=== PATIENT | male | born 1935 | race African-American/Black ===

== ENCOUNTER 2017-01-17 09:41 | Emergency (ER) | payer BC, MEDICARE ==
[~2017-01-17] VITALS: Ht 180.3 cm; Wt 73.0 kg
[2017-01-17] MEDS ORDERED: LIDOCAINE HCL 1% 20ML VIAL (Pyxis) INJ MC ONE (10:15)
[2017-01-17] MEDS ORDERED: TETANUS, DIPHTHERIA, PERTUSSIS VAC/PF 0.5ML (>7YR OLD) IM ONE (10:15)
[2017-01-17 12:57] VITALS: BP 159/81
== END 2017-01-17 13:01 | disposition home or self-care (01) ==
LOC: ER 09:41
DX: S01.511A Laceration without foreign body of lip, initial encounter (principal); I10 Essential (primary) hypertension; W19.XXXA Unspecified fall, initial encounter; Y93.89 Activity, other specified; Y92.89 Other specified places as the place of occurrence of the external cause; Y99.8 Other external cause status
CPT/HCPCS: 12011; 70450; 70486; 73502; 90471; 90715; 99284; J3490

== ENCOUNTER 2017-01-19 10:55 | Emergency (ER) | payer BC, MEDICARE ==
[~2017-01-19] VITALS: Ht 180.3 cm; Wt 73.0 kg
[2017-01-19 13:05] VITALS: BP 142/72
== END 2017-01-19 17:13 | disposition home or self-care (01) ==
LOC: ER 16:34
DX: Z48.00 Encounter for change or removal of nonsurgical wound dressing (principal); I10 Essential (primary) hypertension; Z85.46 Personal history of malignant neoplasm of prostate; Z90.89 Acquired absence of other organs
CPT/HCPCS: 99283

== ENCOUNTER 2017-01-26 08:13 | Emergency (ER) | payer MEDICARE, BC ==
[~2017-01-26] VITALS: Ht 180.3 cm; Wt 73.0 kg
[2017-01-26 08:54] VITALS: BP 141/78
== END 2017-01-26 13:45 | disposition home or self-care (01) ==
LOC: ER 08:13
DX: Z48.02 Encounter for removal of sutures (principal); I10 Essential (primary) hypertension
CPT/HCPCS: 99281